=== PATIENT | female | born 2000 | race Caucasian/White ===

== ENCOUNTER 2023-02-07 08:24 | Emergency (ER) | payer OTHER, SELFPAY ==
[2023-02-07 08:34] VITALS: BP 141/77; PULSE 95; RESP 18; TEMP 37.2; O2SAT 100
--- NOTE | 2023-02-07 08:35 | ED.EYEPROB ---
HPI - Eye Problem General Chief complaint: Eye Problems Stated complaint: Right Eye Problem Source: patient and RN notes reviewed History of Present Illness HPI Narrative: 23 yo F presents to urgent care with complaints of right eye itching and drainage x 5 days. Pt states every time she takes a nap and sleeps, she wakes up with her right eye matted. Pt initially thought it was allergies so she attempted allergy drops without relief. Pt denies any fevers, chills, visual disturbance, or other complaints. Pt does not wear contacts. Related Data Home Medications Medication Instructions Recorded Confirmed ethosuximide 250 mg capsule mg 02/07/23 folic acid 1 mg tablet 02/07/23 Allergies Allergy/AdvReac Type Severity Reaction Status Date / Time No Known Allergies Allergy Verified 02/07/23 08:42 Review of Systems Review of Systems: CONSTITUTIONAL: Denies fever, chills, or sweats. EYES: Right eye drainage, itching, and swelling ENT: Denies otalgia and sore throat CARDIOVASCULAR: Denies chest pain, palpitations, or edema. RESPIRATORY: Denies cough or dyspnea. GASTROINTESTINAL: Denies abdominal pain, nausea, vomiting, or diarrhea. GENITOURINARY: Denies dysuria or hematuria. SKIN: Denies rash or itching. MUSCULOSKELETAL: Denies back pain, joint pain, or myalgia. NEUROLOGIC: Denies headache, numbness, or weakness. Pertinent positives per HPI. PMFSH Comments At the time of my signature, I reviewed and agree with the nursing past medical, surgical, social, and family history. There is no relevant family history pertinent to the patient complaint. Exam Narrative: GENERAL: This is a well-nourished, well-developed patient, in no apparent distress. HEAD: normocephalic, atraumatic. EYES: Right inner sclera erythremic. Dried drainage noted to right eye and lashes. Right upper eyelid mildly edematous. EARS: External ears normal, auditory canals clear and without drainage. Hearing grossly intact. NOSE: External nose normal with no obvious nasal discharge, nares without redness, no rhinorrhea. CARDIOVASCULAR: Regular rate RESPIRATORY: Clear to auscultation. Breath sounds equal bilaterally. No wheezes, rales, or rhonchi. GASTROINTESTINAL: Abdomen soft, non-tender, nondistended. Bowel sounds are active. No hepato-splenomegaly, or palpable masses. No guarding. SKIN: warm, intact with no suspicious lesions or rash, good texture and turgor. NEURO: awake, alert, and oriented to person, place and time. There were no obvious focal neurologic abnormalities. Course Course Level of Care: Express Care Visit Vital Signs Vital signs: Vital Signs Temperature 99 F 02/07/23 08:34 Pulse Rate 95 02/07/23 08:34 Respiratory Rate 18 02/07/23 08:34 Blood Pressure 141/77 H 02/07/23 08:34 Pulse Oximetry 100 02/07/23 08:34 Oxygen Delivery Room Air 02/07/23 08:34 Temperature 99 F 02/07/23 08:34 Pulse Rate 95 02/07/23 08:34 Respiratory Rate 18 02/07/23 08:34 Blood Pressure 141/77 H 02/07/23 08:34 Pulse Oximetry 100 02/07/23 08:34 Oxygen Delivery Room Air 02/07/23 08:34 Reviewed MDM - Eye Problem MDM Narrative Medical decision making narrative: Your exam today shows Conjunctivitis, You have been given a prescription for eye drops. Use the eye drops as instructed. If you are not better in two (2) days, you need to follow up with an restaurant line cook. Do not rub the eye or put anything else in the eye, this can cause abrasions (scratches) on the eye or lead to vision loss. Also it is important not to touch the tube or tip of drops to the eye, as this can cause further infection. Wash your hands very well before instilling the medication. Handwashing can help prevent the spread of disease. Follow up with PCP in 7-10 days Return to ER for problems Contact [facility] if you need an Senior Environmental Engineer Differential Diagnosis Differential diagnosis: Likely corneal abrasion, conju
== END 2023-02-07 08:54 | disposition home or self-care (01) ==
PROVIDERS: Emergency Provider Nurse Practitioner Family
DX: H10.9 Unspecified conjunctivitis (principal)
CPT/HCPCS: 99213; G0463

== ENCOUNTER 2023-07-27 22:54 | Emergency (ER) | payer OTHER, SELFPAY ==
--- NOTE | ~2023-07-27 | XR_ITS ---
Portable chest x-ray Comparison: None Clinical History: Seizure Findings: There is mild haziness bilaterally. No pleural effusion or pneumothorax. Cardiomediastina l silhouette is unremarkable. Bones and soft tissues are unremarkable. Impression: Mild pulmonary haziness. Correlate for minimal pulmonary edema/fluid overload. Reviewed, dictated and finalized at [facility]. [employer]OR MECH[employer]IC APPRENTICE Impression: Mild pulmonary haziness. Correlate for minimal pulmonary edema/fluid overload.
[2023-07-27 22:59] VITALS: BP 94/50; PULSE 110; RESP 15; TEMP 36.9; O2SAT 100
[2023-07-27] MEDS: levETIRAcetam 1000MG/NACL100ML 1,000 MG/100 ML BAG 400 MG IVPB (22:59)
[2023-07-27] MEDS: LORazepam INJ (*CRX) 2 MG/ML VIAL IV PUSH (23:00)
--- NOTE | 2023-07-27 23:02 | ECG_ITS ---
Measurements Intervals [place] Rate: 100 P: 56 [place]: 204 QRS: 55 QRSD: 90 T: 7 QT: 368 QTc: 475 Interpretive Statements SINUS TACHYCARDIA POSSIBLE LEFT ATRIAL ENLARGEMENT [-0.1mV P WAVE IN V1/V2] NONSPECIFIC ST ABNORMALITY BORDERLINE ECG NO PREVIOUS ECG AVAILABLE FOR COMPARISON Electronically Signed On 07-28-2023 17:09:25 CARDIAC EXERCISE SPECIALIST by Medardo Parada M.D.
--- NOTE | 2023-07-27 23:09 | ED.GENADULT ---
HPI - General Adult General Chief complaint: Seizure Stated complaint: seizure History of Present Illness HPI narrative: patient is a 23-year-old female who presents to emergency department with chief complaint of seizure. Patient reports that she does have history of seizure disorder the patient recently had a medication change her Keppra was started at 500 mg daily patient today had a generalized tonic clonic seizure in her vehicle and was pulled over for erratic driving the patient had several seizures upon EMS arrival and police arrival Related Data Home Medications Medication Instructions Recorded Confirmed ethosuximide 250 mg capsule mg 02/07/23 folic acid 1 mg tablet 02/07/23 Allergies Allergy/AdvReac Type Severity Reaction Status Date / Time No Known Allergies Allergy Verified 02/07/23 08:42 Review of Systems Review of Systems: A 10 system review of systems was completed on the patient and is negative except for what is stated in the HPI. Nursing and ancillary documentation was reviewed. Exam Narrative: GENERAL: Well-appearing, well-nourished, and in no acute distress. HEAD: Normocephalic, atraumatic. EYES: PERRLA and EOMI. ENT: Nares clear, no rhinorrhea or epistaxis. Mucous membranes moist. NECK: Supple. CHEST: Clear to auscultation. No respiratory distress. HEART: Regular rate and rhythm. No murmur heard. Normal peripheral pulses. ABDOMEN: Soft, nontender, nondistended, normal active bowel sounds. EXTREMITIES: Normal range of motion. No edema. SKIN: Warm, dry, no rash. NEURO: No focal deficits. Alert and oriented x3. PSYCH: Normal mood and affect. Course Vital Signs Vital signs: Vital Signs Temperature 36.9 C 07/27/23 22:59 Pulse Rate 110 H 07/27/23 22:59 Respiratory Rate 15 07/27/23 22:59 Blood Pressure 94/50 L 07/27/23 22:59 Pulse Oximetry 100 07/27/23 22:59 Oxygen Delivery Non-Rebreather Mask 07/27/23 22:59 Oxygen Flow Rate 15 07/27/23 22:59 Temperature 36.9 C 07/27/23 22:59 Pulse Rate 110 H 07/27/23 22:59 Respiratory Rate 15 07/27/23 22:59 Blood Pressure 94/50 L 07/27/23 22:59 Pulse Oximetry 97 07/27/23 23:11 Oxygen Delivery Room Air 07/27/23 23:11 Oxygen Flow Rate 15 07/27/23 22:59 Medical Decision Making MDM Narrative Medical decision making narrative: differential diagnosis includes electrolyte abnormality medicine noncompliance, laboratory studies were obtained that were non focal. Patient received IV Keppra in the emergency department and received IV Ativan. The patient was observed and is currently back to her baseline neurological status Vital Signs Vital Signs: Vital Signs Temperature 36.9 C 07/27/23 22:59 Pulse Rate 110 H 07/27/23 22:59 Respiratory Rate 15 07/27/23 22:59 Blood Pressure 94/50 L 07/27/23 22:59 Pulse Oximetry 100 07/27/23 22:59 Oxygen Delivery Non-Rebreather Mask 07/27/23 22:59 Oxygen Flow Rate 15 07/27/23 22:59 Temperature 36.9 C 07/27/23 22:59 Pulse Rate 110 H 07/27/23 22:59 Respiratory Rate 15 07/27/23 22:59 Blood Pressure 94/50 L 07/27/23 22:59 Pulse Oximetry 97 07/27/23 23:11 Oxygen Delivery Room Air 07/27/23 23:11 Oxygen Flow Rate 15 07/27/23 22:59 Lab Data 07/27/23 23:22 07/27/23 23:22 Labs: Lab Results 07/27/23 07/27/23 Range/Units 02:18 23:22 WBC 16.2 H (4.5-10.0) K/mm3 RBC 4.75 (4.2-5.4) M/mm3 Hgb 13.9 (12.0-15.0) g/dL Hct 42.8 (37.0-47.0) % MCV 90.1 (80-100) fl MCH 29.3 (26-34) pg MCHC 32.5 (32-36) g/dl RDW 12.3 (11.5-14.5) % Plt Count 364 (150-375) k/mm3 MPV 10.3 (7.4-10.4) fl Immature Gran % (Auto) 0.6 H (0-0.5) % Neut % (Auto) 82.0 H (45.5-73.1) % Lymph % (Auto) 12.8 L (18.3-44.2) % [place] % (Auto) 3.6 (2.6-8.5) % Eos % (Auto) 0.7 (0-4.4) % Baso % (Auto) 0.3 (0.2-1.2) % Lymph # (Auto) 2.07 (0.9-3.2) K/
[2023-07-27 23:11] VITALS: O2SAT 97
[2023-07-27] MEDS: SODIUM CHLORIDE 0.9% IV 1,000 ML 999 ML IV CONT (23:27)
[2023-07-27 23:28] LABS: Basophils Absolute Auto 0.1 K/mm3 (0.0-0.1); Basophils Percent Auto 0.3 % (0.2-1.2); Eosinophils Absolute Auto 0.1 K/mm3 (0-0.3); Eosinophils Percent Auto 0.7 % (0-4.4); Hematocrit 42.8 % (37.0-47.0); Hemoglobin 13.9 g/dL (12.0-15.0); Immature Granulocyte Absolute 0.09 K/mm3 (0.00-0.031); Immature Granulocyte Percent A 0.6 % (0-0.5); Lymphocytes Absolute Auto 2.07 K/mm3 (0.9-3.2); Lymphocytes Percent Auto 12.8 % (18.3-44.2); Mean Corpuscular HGB Conc 32.5 g/dl (32-36); Mean Corpuscular Hemoglobin 29.3 pg (26-34); Mean Corpuscular Volume 90.1 fl (80-100); Mean Platelet Volume 10.3 fl (7.4-10.4); Monocytes Absolute Auto 0.6 K/mm3 (0.1-0.6); Monocytes Percent Auto 3.6 % (2.6-8.5); Neutrophils Absolute Auto 13.3 K/mm3 (1.3-6.7); Platelet Count Result 364 k/mm3 (150-375); Red Blood Count 4.75 M/mm3 (4.2-5.4); Red Cell Distribution Width 12.3 % (11.5-14.5); White Blood Count 16.2 K/mm3 (4.5-10.0)
[2023-07-27 23:42] LABS: Alanine Aminotransferase 54 U/L (6-35); Alkaline Phosphatase 82 U/L (38-126); Anion Gap 21 mmol/L (8-16); Aspartate Amino Transferase 34 U/L (14-36); Bilirubin,Total 0.5 mg/dL (0.2-1.3); Blood Urea Nitrogen 13 mg/dL (7-17); Calcium 9.3 mg/dL (8.4-10.2); Carbon Dioxide 15 mmol/L (22-30); Chloride 102 mmol/L (98-107); Estimated CRCL calculation 113 ml/min; Estimated Glomerular Filt Rate > 60; Glucose 151 mg/dL (65-110); Magnesium 2.6 mg/dL (1.6-2.3); Potassium 4.4 mmol/L (3.4-5.0); Sodium 138 mmol/L (137-145)
[2023-07-28 01:12] VITALS: BP 112/74; PULSE 92; RESP 16; O2SAT 100
[2023-07-28 03:01] LABS: Influenza A QL RT-PCR Negative (Negative); Influenza B QL RT-PCR Negative (Negative); RSV RNA, RT-PCR Negative (Negative); SARS-CoV-2 RNA PCR Negative (Negative)
[2023-07-28] MEDS: ONDANSETRON HCL ODT 4 MG TABLET PO (04:09)
[2023-07-28 04:15] VITALS: BP 116/70; PULSE 88; RESP 16; O2SAT 100
[2023-07-28 06:13] VITALS: BP 116/72; PULSE 85; RESP 16; O2SAT 100
== END 2023-07-28 06:14 | disposition home or self-care (01) ==
PROVIDERS: Emergency Provider Emergency Medicine
DX: G40.909 Epilepsy, unspecified, not intractable, without status epilepticus (principal); Z11.52 Encounter for screening for COVID-19; R00.0 Tachycardia, unspecified; R94.31 Abnormal electrocardiogram [ECG] [EKG]
CPT/HCPCS: 36415; 71045; 80053; 83735; 85025; 87637; 93005; 96365; 96375; 99284; A9270; J1953; J2060; J7030